=== PATIENT | female | born 1985 | race Caucasian/White ===

== ENCOUNTER 2016-08-25 02:11 | Emergency (ER) | payer MEDICAID ==
[~2016-08-25] VITALS: Ht 175.3 cm; Wt 76.2 kg
[~2016-08-25 02:11] MED LIST: FLOMAX 0.4MG C0.4 MG PO; IBUPROFEN200 MG PO; LORTAB 5/500 501 TAB PO; MEDROL 4MG. DOSE4 MG PO; MELATIN1 TAB PO; MOTRIN 600MG.600 MG PO; PERCOCET1 TAB PO; PHENERGAN 25MG.25 M1 PO; VICKS DAYQUIL PO
[2016-08-25 02:22] LABS: URINE BILIRUBIN - DIPSTICK NEGATIVE (NEG); URINE BLOOD 3+ (NEG)
--- OUTSIDE RECORDS SUMMARY | 2016-08-25 02:22 | External Medical Summary Rpt ---
Author Author , Organization [employer] Address Unknown Phone Unavailable Purpose Continuity of Care Document - through 2016
--- OUTSIDE RECORDS SUMMARY | 2016-08-25 02:22 | External Medical Summary Rpt ---
Author Author [employer] Organization [employer] Address Unknown Phone Unavailable Purpose Continuity of Care Document - through 2016
--- OUTSIDE RECORDS SUMMARY | 2016-08-25 02:23 | External Medical Summary Rpt ---
Author Author , Organization [employer] Address Unknown Phone Unavailable Purpose Continuity of Care Document - 06-10-1995 through 2016 Immunization Name Date Route CVX Reacti Commen Provid Is Given on t er Refuse d Td Histor H149 No (adult 2002 ical ), Inform adsorb ation ed - Source Unspec ified MMR Histor H149 No 1995 ical Inform ation - Source Unspec ified
--- OUTSIDE RECORDS SUMMARY | 2016-08-25 02:23 | External Medical Summary Rpt ---
Author Author [employer] Carranza, [employer] Organization [employer] Address Unknown Phone Unavailable
[2016-08-25 02:30] LABS: HEMOGLOBIN 14.5 g/dL (12.2-16.2); LYMPH % 16.1 % (10-50.0)
--- NOTE | 2016-08-25 02:30 | Emergency Room Report ---
History of Present Illness Time Seen by MD Araiza Presenting Problem in Triage Pt arrived:Walked Presenting Problem:c/o urinary symptoms on wednesday then developed right sided low back pain this am which became worse tonight and then started vomiting. 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 N Clinical Suspician of Infection? N Mental Status: 1 - Regular (Normal Baseline) Sepsis Risk:Low Sepsis Risk Have you (or family members/close friends) recently traveled outside the [place]? N If Yes, where/when: Have you had exposure to infectious disease within the past month? N TB? Other? Specify: Source patient, RN notes reviewed, family, old records Exam Limitations no limitations Comment pt with rt flank pain with hx of kidney stones which started today Cardiac Chest Pain Chest pain indicative of cardiac No Timing/Duration this evening Severity moderate ALLERGIES Coded Allergies: meperidine (From DEMEROL) (12/31/15) Home Medications Reported Medications MELATONIN (Melatin) 1 TAB PO QHSP PRN SLEEP History Medical History General CAD? No Angina: No [place]: No Hypertension? No Hyperlipidemia? No CHF? No DVT? No PE? No COPD? No Asthma? No Anemia? No GERD? No Gastric ulcers? No GI Bleed? No Hernia? No Thyroid Problems? No Hypothyroidism? No CVA? No Seizures? No Diabetes? No Renal Insuffiency? No End Stage Renal Disease? No UTI? No Stones? Yes GB Disease: No Nephritic Syndrome? No Asplenia? No Hepatitis? No Sickle Cell Disease? No Arthritis? No Migraines? No Cataracts? No Glaucoma? No MRSA? No HIV? No TB? No Anxiety? No Depression? No Cancer? 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 Respiratory denies cough, denies shortness of breath, denies wheezing Cardiovascular denies chest pain, denies syncope Gastrointestinal see HPI, denies abdominal pain, nausea Genitourinary see HPI. denies: dysuria, frequency, hesitancy, hematuria. Musculoskeletal denies back pain, denies joint pain, denies joint swelling, denies neck pain Skin denies rash Psychiatric/Neurological denies headache, denies seizure Physical Exam Vital Signs Vital Signs Date Time Temp Pulse Resp B/P Pulse O2 O2 Flow FiO2 Ox Delivery Rate 08/26 227 20 08/25 212 98.4 86 20 134/92 100 - WBC >12,000 or <4,000 or 10% bands? 2 or more SIRS Criteria Met? B/P:134/92 MAP:106 Creatinine >2.0? UA output<0.5ml/kg/hr for 2 hrs? Platelet count >100,000? Lactate >2.0mmol/1? INR >1.2 or PTT > than 60 sec? Evidence of Organ Dysfunction? Provider documented clinical suspician of infection? N Sepsis Criteria Count: 1 Sepsis Risk: Low Sepsis Risk General Appearance no apparent distress Eye Exam - bilateral eye PERRL, bilateral eye EOMI Ear, Nose, Throat normal ENT inspection Neck supple Respiratory Status No: respiratory distress. 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 No Results/Orders Laboratory Tests 08/25/16 0225: Sodium 141, Potassium 3.8, Chloride 105, Carbon Dioxide 24, BUN 13, Creatinine 0.8, Estimated Creat Clear 121, Estimated GFR (MDRD) 83, Glucose 117 H, Calcium 10.0, Total Bilirubin 0.2, AST 12 L, ALT 19, Alkaline Phosphatase 74, Total Protein 7.5, Albumin 4.0, Globulin 3.5 H, Albumin/Globulin Ratio 1.1, WBC 12.7 H, RBC 4.53, Hgb 14.5, Hct 42.4, MCV 93.6, RDW 11.9, Plt Count 135 L, MPV 9.7, Gran % 79.1, Gran # 10.0 H, Lymphocytes % 16.1, Monocytes % 4.0, Eosinophils % 0.6, Basophils % 0.2, Lymphocytes # 2.0, Monocytes # 0.5, Eosinophils # 0.1, Basophils # 0.0, PUBS MCHC 34.3, MCH 32.1 H 08/25/16 0216: Urine Color YELLOW, Urine Appearance CLEAR, Urine pH 6.0, Ur Specific [place] 1.020, Urine Protein NEGATIVE, Urine Ketones NEGATIVE, Urine Blood 3+ H, Urine Nitrate NEGATIVE, Urine Bilirubin NEGATIVE, Urine Urobilinogen 0.2, Ur Leukocyte Esterase NEGATIVE, Urine RBC 10-20, Urine WBC 3-5, Ur Squamous Epith Cells 5-10, Urine Bacteria 1+, Urine Mucus 1+, Urine Glucose NEGATIVE Current Medication Orders Sig/Oscar Start time Last Medication Dose Route Stop Time Status Admin Ketorolac 30 MG ONCE ONE 08/25 229 DC 08/25 Tromethamine IV 08/25 230 0228 Ondansetron HCl 4 MG ONCE ONE 08/25 229 DC 08/25 IV 08/25 023 0228 Sodium Chloride 10 ML PRN PRN 08/25 023 AC IV 08/26 0217 Sodium Chloride 1,000 ML .Q1H1M 08/25 023 DC 08/25 IV 08/25 0330 0228 Sodium Chloride 10 ML PRN PRN 08/25 0230 AC IV 08/26 021 Ondansetron HCl 0 .STK-MED ONE 08/25 220 DC .ROUTE Sodium Chloride 1,000 ML .STK-MED ONE 08/25 220 DC IV Ketorolac 0 .STK-MED ONE 08/26 219 DC Tromethamine .ROUTE Orders Procedure Date/time Status DIET-NOTHING BY MOUTH 08/[address] ABD & PELVIS W/O CONTRAST 08/[address] ABD/PELVIS REQ 08/25 217 Complete IV SALINE LOCK 08/25 217 Active URINALYSIS/COMPLETE 08/25 217 Complete URINE 08/25 217 Complete COMPLETE METABOLIC PANEL 08/25 217 Complete CBC WITH AUTO DIFF 08/25 217 Complete XRAY/CT/US XRAY/CT/US CT abdomen, pelvis CT interpretation by discussed w/radiologist Time results known: 328 CT Results abnormal (6 mm stone) Departure Departure Time of Disposition 328 Disposition DC Home or Self Care(routine) Clinical Impression Primary Impression: Renal colic on right side Condition STABLE Referrals Mirian ORTIZ,Balbir Cabral MD,Andi Patient Instructions DI for Kidney Stones Additional Instructions fluids and see urology and recheck if any problems Discharge Counseling Counseled pt/family regarding diagnosis, test results, medications/RX, follow up needs Prescriptions Current Visit Scripts HYDROCODONE/ACETAMINOPHEN ([place] 5-325 Tablet) 1 TAB PO Q6HP PRN pain #7 TAB ED Critical Care Critical Care No at [id number]
--- NOTE | 2016-08-25 02:30 | Emergency Room Report ---
History of Present Illness Time Seen by MD Araiza Presenting Problem in Triage Pt arrived:Walked Presenting Problem:c/o urinary symptoms on wednesday then developed right sided low back pain this am which became worse tonight and then started vomiting. 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 N Clinical Suspician of Infection? N Mental Status: 1 - Regular (Normal Baseline) Sepsis Risk:Low Sepsis Risk Have you (or family members/close friends) recently traveled outside the [place]? N If Yes, where/when: Have you had exposure to infectious disease within the past month? N TB? Other? Specify: Source patient, RN notes reviewed, family, old records Exam Limitations no limitations Comment pt with rt flank pain with hx of kidney stones which started today Cardiac Chest Pain Chest pain indicative of cardiac No Timing/Duration this evening Severity moderate ALLERGIES Coded Allergies: meperidine (From DEMEROL) (12/31/15) Home Medications Reported Medications MELATONIN (Melatin) 1 TAB PO QHSP PRN SLEEP History Medical History General CAD? No Angina: No [place]: No Hypertension? No Hyperlipidemia? No CHF? No DVT? No PE? No COPD? No Asthma? No Anemia? No GERD? No Gastric ulcers? No GI Bleed? No Hernia? No Thyroid Problems? No Hypothyroidism? No CVA? No Seizures? No Diabetes? No Renal Insuffiency? No End Stage Renal Disease? No UTI? No Stones? Yes GB Disease: No Nephritic Syndrome? No Asplenia? No Hepatitis? No Sickle Cell Disease? No Arthritis? No Migraines? No Cataracts? No Glaucoma? No MRSA? No HIV? No TB? No Anxiety? No Depression? No Cancer? 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 Respiratory denies cough, denies shortness of breath, denies wheezing Cardiovascular denies chest pain, denies syncope Gastrointestinal see HPI, denies abdominal pain, nausea Genitourinary see HPI. denies: dysuria, frequency, hesitancy, hematuria. Musculoskeletal denies back pain, denies joint pain, denies joint swelling, denies neck pain Skin denies rash Psychiatric/Neurological denies headache, denies seizure Physical Exam Vital Signs Vital Signs Date Time Temp Pulse Resp B/P Pulse O2 O2 Flow FiO2 Ox Delivery Rate 08/26 227 20 08/25 212 98.4 86 20 134/92 100 - WBC >12,000 or <4,000 or 10% bands? 2 or more SIRS Criteria Met? B/P:134/92 MAP:106 Creatinine >2.0? UA output<0.5ml/kg/hr for 2 hrs? Platelet count >100,000? Lactate >2.0mmol/1? INR >1.2 or PTT > than 60 sec? Evidence of Organ Dysfunction? Provider documented clinical suspician of infection? N Sepsis Criteria Count: 1 Sepsis Risk: Low Sepsis Risk General Appearance no apparent distress Eye Exam - bilateral eye PERRL, bilateral eye EOMI Ear, Nose, Throat normal ENT inspection Neck supple Respiratory Status No: respiratory distress. 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 No Results/Orders Laboratory Tests 08/25/16 0225: Sodium 141, Potassium 3.8, Chloride 105, Carbon Dioxide 24, BUN 13, Creatinine 0.8, Estimated Creat Clear 121, Estimated GFR (MDRD) 83, Glucose 117 H, Calcium 10.0, Total Bilirubin 0.2, AST 12 L, ALT 19, Alkaline Phosphatase 74, Total Protein 7.5, Albumin 4.0, Globulin 3.5 H, Albumin/Globulin Ratio 1.1, WBC 12.7 H, RBC 4.53, Hgb 14.5, Hct 42.4, MCV 93.6, RDW 11.9, Plt Count 135 L, MPV 9.7, Gran % 79.1, Gran # 10.0 H, Lymphocytes % 16.1, Monocytes % 4.0, Eosinophils % 0.6, Basophils % 0.2, Lymphocytes # 2.0, Monocytes # 0.5, Eosinophils # 0.1, Basophils # 0.0, PUBS MCHC 34.3, MCH 32.1 H 08/25/16 0216: Urine Color YELLOW, Urine Appearance CLEAR, Urine pH 6.0, Ur Specific [place] 1.020, Urine Protein NEGATIVE, Urine Ketones NEGATIVE, Urine Blood 3+ H, Urine Nitrate NEGATIVE, Urine Bilirubin NEGATIVE, Urine Urobilinogen 0.2, Ur Leukocyte Esterase NEGATIVE, Urine RBC 10-20, Urine WBC 3-5, Ur Squamous Epith Cells 5-10, Urine Bacteria 1+, Urine Mucus 1+, Urine Glucose NEGATIVE Current Medication Orders Sig/Oscar Start time Last Medication Dose Route Stop Time Status Admin Ketorolac 30 MG ONCE ONE 08/25 229 DC 08/25 Tromethamine IV 08/25 230 0228 Ondansetron HCl 4 MG ONCE ONE 08/25 229 DC 08/25 IV 08/25 023 0228 Sodium Chloride 10 ML PRN PRN 08/25 023 AC IV 08/26 0217 Sodium Chloride 1,000 ML .Q1H1M 08/25 023 DC 08/25 IV 08/25 0330 0228 Sodium Chloride 10 ML PRN PRN 08/25 0230 AC IV 08/26 021 Ondansetron HCl 0 .STK-MED ONE 08/25 220 DC .ROUTE Sodium Chloride 1,000 ML .STK-MED ONE 08/25 220 DC IV Ketorolac 0 .STK-MED ONE 08/26 219 DC Tromethamine .ROUTE Orders Procedure Date/time Status DIET-NOTHING BY MOUTH 08/[address] ABD & PELVIS W/O CONTRAST 08/[address] ABD/PELVIS REQ 08/25 217 Complete IV SALINE LOCK 08/25 217 Active URINALYSIS/COMPLETE 08/25 217 Complete URINE 08/25 217 Complete COMPLETE METABOLIC PANEL 08/25 217 Complete CBC WITH AUTO DIFF 08/25 217 Complete XRAY/CT/US XRAY/CT/US CT abdomen, pelvis CT interpretation by discussed w/radiologist Time results known: 328 CT Results abnormal (6 mm stone) Departure Departure Time of Disposition 328 Disposition DC Home or Self Care(routine) Clinical Impression Primary Impression: Renal colic on right side Condition STABLE Referrals Mirian ORTIZ,Balbir Cabral MD,Andi Patient Instructions DI for Kidney Stones Additional Instructions fluids and see urology and recheck if any problems Discharge Counseling Counseled pt/family regarding diagnosis, test results, medications/RX, follow up needs Prescriptions Current Visit Scripts HYDROCODONE/ACETAMINOPHEN ([place] 5-325 Tablet) 1 TAB PO Q6HP PRN pain #7 TAB ED Critical Care Critical Care No at [id number]
[2016-08-25] MEDS ORDERED: NORCO 325 MG-51 TAB PO (03:37)
[2016-08-25 04:00] VITALS: BP 145/88
--- NOTE | 2016-08-25 07:23 | RADIOLOGY REPORT PS360 ---
CT ABD PELVIS W/O CONTRAST CLINICAL INDICATION: Abdominal pain, right flank pain ABD/FLANK PAIN ORDERING PHYSICIAN: Yimi Macedo MD PATIENT AGE: 30 years COMPARISON: 12/31/2015 TECHNIQUE: Axial images obtained with sagittal and coronal reformats. PROCEDURE: Oral Contrast: None IV Contrast: None . FINDINGS: Lower thorax: No acute finding. Abdomen : The liver, spleen, pancreas, and gallbladder have an unremarkable unenhanced CT appearance. There is bilateral adrenal enlargement consistent with adenomatous involvement. Left adrenal gland is 3.2 x 2.2 cm and has slightly increased in size compared to the previous exam at that time measuring 3 x 1.9 cm. There is however low density changes centrally measuring as low as -16 Hounsfield units consistent with an adenoma. Right adrenal gland is also slightly enlarged at 13 mm with isodense changes measures as low as -12 Hounsfield units. Urinary tract: There are punctate bilateral renal calculi measuring up to 4 mm in the upper pole on the right and 3 mm in the lower pole on the left. There is moderate right hydronephrosis and hydroureter secondary to a 6 mm right ureterovesical junction stone. Pelvis: Unremarkable appendix. There is an IUD present. 1.5 cm left adnexal cyst. No intestinal obstruction or free air. No acute bony anomalies. IMPRESSION: 1. 6 mm right ureterovesical junction stone with moderate right-sided obstructive uropathy. 2. Punctate bilateral renal calculi 3. Bilateral adrenal adenomas
[2016-08-25] MEDS ORDERED: TAMSULOSIN HYD0.4 MG PO (20:45)
[2016-08-25] MEDS ORDERED: FOLIC ACID 1MG T1 MG PO (20:48)
[2016-08-27] MEDS ORDERED: TORADOL10 MG PO (14:45)
[2016-08-27] MEDS ORDERED: ZOFRAN4 MG PO (14:45)
== END 2016-08-25 04:05 | disposition home or self-care (01) ==
LOC: ER 02:11
PROVIDERS: Emergency Medicine
DX: N13.2 Hydronephrosis with renal and ureteral calculous obstruction (principal); Z87.442 Personal history of urinary calculi; Z72.0 Tobacco use
CPT/HCPCS: J2405